=== PATIENT | female | born 1980 | race Caucasian/White ===

== ENCOUNTER 2023-07-26 15:02 | Emergency (ER) | payer OTHER, BC, SELFPAY ==
--- NOTE | ~2023-07-26 | XR_ITS ---
EXAMINATION: XR ankle LT min 3V DATE: 07/26/2023 17:05 INDICATION: Left ankle pain post injury TECHNIQUE: Anteroposterior, oblique, mortise, and lateral views of the left ankle were obtained. COMPARISON: 11/12/2010 FINDINGS: A couple small heterotopic ossicles with smooth corticated margins along the tip the medial malleolus likely sequela of chronic deltoid ligament sprain. Bone alignment is normal. No fracture. Joint spac es are normal. There is soft tissue swelling about the lateral malleolus. IMPRESSION: 1. Soft tissue swelling about the lateral malleolus without evident acute osseous abnormality suggest ing a lateral ankle sprain. Reviewed, dictated and finalized at location A. [employer] OPERATOR IMPRESSION: 1. Soft tissue swelling about the lateral malleolus without evident acute osseo us abnormality suggesting a lateral ankle sprain.
[2023-07-26 15:08] VITALS: BP 140/80; PULSE 110; RESP 16; TEMP 37; O2SAT 98
[2023-07-26 16:47] VITALS: BP 117/76; PULSE 103; RESP 20; TEMP 36.6; O2SAT 97
--- NOTE | 2023-07-26 17:34 | ED.LOWEXIN ---
HPI - Extremity Injury (Lower) General Chief Complaint: Extremity Injury, Lower Stated Complaint: LEFT ANKLE INJURY Time Seen by Provider: 07/26/23 16:54 Source: patient Mode of arrival: wheelchair Limitations: no limitations History of Present Illness HPI Narrative: This is a 42 year old female that presents to the ER for left ankle pain after an injury last night. Reports she fell in her living room. Reports lateral ankle pain and swelling. Reports decreased ROM. No other focal injuries or areas of pain. Denies numbness. Related Data Allergies Allergy/AdvReac Type Severity Reaction Status Date / Time No Known Allergies Allergy Verified 03/07/23 10:38 Review of Systems Review of Systems: CONSTITUTIONAL: Denies fever MUSCULOSKELETAL: Reports joint pain, and myalgia. NEUROLOGIC: Denies numbness All systems reviewed & are unremarkable except as noted in HPI and below PMFSH Past Medical History Medical History Anxiety and depression Hypertension Family History Family History Grandparent Family history of hypercholesterolemia Hypertension Family history of malignant neoplasm of breast in first degree relative Father Hypertension Family history of alcoholism Family history of cardiovascular disease Family history of liver disease Mother Hypertension Sibling Hypertension Social History Social History (Updated 03/07/23 @ 10:40 by Abbie Medina CMA) Smoking packs per day: 0.40 Smoking cigarettes per day: 8.0 Years smoked: 15 Smoking pack-years: 6.00 Smoking status: Former smoker (Quit Jul 2020) Tobacco type: cigarettes and e-cigarettes/vaping Second hand tobacco smoke exposure: No Smoking end date: 08/27/20 Alcohol intake: current Alcohol use details: consumes 2 drinks socially Substance use: never Substance use type: does not use Lack of Transportation: No Lack of Food: Never True Current Housing: I Have Housing Concerned About Future Housing: No Difficulty Paying Gas/Electric Bills: No Difficulty Paying for Meds: No Currently Unemployed: No Education: High School Diploma/GED Difficulty w/ Childcare or Family Care: No Living arrangements: with family Occupation/Education: occupation Gender identity (if verbalized by the patient): Female Spiritual care concerns: No Agree to blood products: Yes Exam Narrative: GENERAL: Well-appearing, well-nourished, and in no acute distress. HEAD: Normocephalic, atraumatic. EYES: EOMI. EXTREMITIES: Decreased active ROM in the left ankle due to pain. Mild edema about the left lateral malleoli. No obvious deformity. Normal DP pulse. Normal sensation SKIN: Warm, dry, no rash. NEURO: No focal deficits. Alert and oriented x3. PSYCH: Normal mood and affect Course Course Emergency Course: Patient updated on workup and agrees with plan of care Vital Signs Vital signs: Vital Signs Temperature 98.6 F 07/26/23 15:08 Pulse Rate 110 H 07/26/23 15:08 Respiratory Rate 16 07/26/23 15:08 Blood Pressure 140/80 07/26/23 15:08 Pulse Oximetry 98 07/26/23 15:08 Oxygen Delivery Room Air 07/26/23 15:08 Temperature 97.9 F 07/26/23 16:47 Pulse Rate 103 H 07/26/23 16:47 Respiratory Rate 20 07/26/23 16:47 Blood Pressure 117/76 07/26/23 16:47 Pulse Oximetry 97 07/26/23 16:47 Oxygen Delivery Room Air 07/26/23 15:08 MDM - Extremity Injury (Lower) MDM Narrative Medical decision making narrative: Patient presents to the emergency department for left ankle pain after an injury last night. She is neurovascularly intact. Left ankle x-ray is without acute osseous abnormalities. Does show soft tissue swelling consistent with a lateral ankle sprain. Patient placed in Ross wrap. Reports she has crutches at home. Instructed to rest, ice and take over-the-co
== END 2023-07-26 18:04 | disposition home or self-care (01) ==
LOC: ANHED 17:49
PROVIDERS: Emergency Provider Physician Assistant; PCP Family Medicine
DX: S93.402A Sprain of unspecified ligament of left ankle, initial encounter (principal); Z87.891 Personal history of nicotine dependence; W19.XXXA Unspecified fall, initial encounter
CPT/HCPCS: 73610; 99283